=== PATIENT | female | born 1985 | race Caucasian/White ===

== ENCOUNTER 2019-12-05 05:43 | Emergency (ER) | payer BC ==
[~2019-12-05] VITALS: Ht 160 cm; Wt 72.6 kg
[2019-12-05 06:00] VITALS: BP_SYST 143
--- NOTE | 2019-12-05 07:00 | NUR ---
ER Dr. Fields at bedside examining patient.
--- NOTE | 2019-12-05 07:12 | NUR ---
Patient is awake, alert, and oriented x4. Patient came from home for evaluation of left flank pain since 0500 today. She reports a history of kidney stones and states that this pain feels the same. Patient also complains of 1 episode of vomiting.
--- NOTE | 2019-12-05 07:12 | NUR ---
Stalin desai in [facility] - 12/05/19 at 0712 by EMY Report received from ROSCOE Kumar for continuation of care.
[2019-12-05 07:44] LABS: BASOPHILS # (AUTO) 0.1 K/uL (0.0-0.2); BASOPHILS % (AUTO) 0.6 % (0.0-2.0); EOSINOPHILS # (AUTO) 0.1 K/uL (0.0-0.4); HEMATOCRIT 38.2 % (36-48); HEMOGLOBIN 13.2 g/dL (12.0-16.0); LYMPHOCYTES # (AUTO) 1.1 K/uL (1.0-5.5); LYMPHOCYTES % (AUTO) 14.1 % (20.5-51.5); MEAN CORPUSCULAR HEMOGLOBIN 31 pg (27-31); MEAN CORPUSCULAR HGB CONC 34 % (32-36); MEAN CORPUSCULAR VOLUME 89 fL (79.0-98.0); MONOCYTES # (AUTO) 0.4 K/uL (0.0-1.0); MONOCYTES % (AUTO) 4.7 % (1.7-9.3); NEUTROPHILS # (AUTO) 6.3 K/uL (1.8-7.7); NEUTROPHILS % (AUTO) 79.6 % (40.0-70.0); PLATELET COUNT (AUTO) 171 K/uL (130-430); RED BLOOD CELL COUNT(AUTO) 4.28 MIL/uL (4.2-6.2); RED CELL DISTRIBUTION WIDTH 13.9 % (9.0-15.0); WHITE BLOOD COUNT (AUTO) 7.9 K/uL (4.8-10.8)
[2019-12-05 07:56] LABS: BILIRUBIN,URINE NEGATIVE (NEGATIVE); BLOOD, URINE 2+ (NEGATIVE); CLARITY/URINE CLEAR (CLEAR); COLOR,URINE YELLOW (YELLOW); GLUCOSE,URINE NEGATIVE (NEGATIVE); KETONES,URINE NEGATIVE (NEGATIVE); LEUKOCYTE ESTERASE ,URINE NEGATIVE (NEGATIVE); NITRITE, URINE NEGATIVE (NEGATIVE); PROTEIN URINE NEGATIVE (NEGATIVE); UROBILINOGEN,URINE 0.2 (0.2-1.0)
[2019-12-05 08:07] LABS: CALCIUM 8.2 mg/dL (8.4-11.0); CREATININE 0.73 mg/dL (0.55-1.30); POTASSIUM 3.8 mmol/L (3.5-5.1)
[2019-12-05 08:08] LABS: ALBUMIN 3.4 g/dL (3.4-4.8); TOTAL BILIRUBIN 0.3 mg/dL (0.0-1.0)
[2019-12-05 08:42] LABS: BACTERIA,URINE RARE /HPF (None Seen); WBC,URINE 0-3 /HPF (0-3)
--- NOTE | 2019-12-05 10:26 | NUR ---
Patient transported to radiology via wheelchair, accompanied by audio technician.
--- NOTE | 2019-12-05 10:42 | NUR ---
Returned from radiology, [facility] to [facility].
--- NOTE | 2019-12-05 10:42 | NUR ---
[employer] technician returned stating that patient is 10 weeks, 5 days .
[2019-12-05 11:34] VITALS: BP_SYST 136
--- NOTE | 2019-12-05 11:34 | NUR ---
Patient given written and verbal discharge instructions and verbalizes understanding. ER MD discussed with patient the results and treatment provided. Patient in stable condition. ID arm band removed. Patient educated on pain management and to follow up with PMD. Pain Scale 0/10. Opportunity for questions provided and answered. Medication side effect fact sheet provided.
== END 2019-12-05 11:34 | disposition home or self-care (01) ==
LOC: SED 05:43
DX: O26.891 Other specified pregnancy related conditions, first trimester (principal); R10.9 Unspecified abdominal pain; R31.29 Other microscopic hematuria; Z3A.10 10 weeks gestation of pregnancy
CPT/HCPCS: 36415; 76805-TC; 80053; 81000-TC; 81025; 83690-TC; 84702-TC; 85025; 99284